=== PATIENT | male | born 1995 | race Caucasian/White ===

== ENCOUNTER 2018-11-29 17:18 | Emergency (ER) | payer BC ==
[2018-11-29 17:49] VITALS: BP 148/75
--- NOTE | 2018-11-29 18:10 | UC ---
Ear Complaint HPI - HPI Summary HPI Summary: 23 year old male with PMH + for dental work x 1 month ago, meds: none. + h/o seasonal allergies Presents with L ear fullness x 2 weeks. hears popping in ear, particularly with moving his jaw. Denies pain, decreased hearing. + fullness posterior to ear concerning patient for cancer. Also notes numbness intermittently to b/l 5th, 4th fingers, more at night when sleeping with bent arm, but will occur randomly. patient was reading online about cancer when ersearching his ear and made him stressed/ nervous, which he feels made his fingers worse. He denies loss of movement, able to feel fingers, but feels they are tingling at time. no SOB - History of Current Complaint Chief Complaint: UCEar Stated Complaint: JAW PAIN,SINUSES,EAR PLUGGED Time Seen by Provider: 11/29/18 18:05 Hx Obtained From: Patient Onset/Duration: Sudden Onset, Lasting Weeks - 2 weeks Severity Initially: Mild Severity Currently: Mild Pain Intensity: 2 Pain Scale Used: 0-10 Numeric Aggravating Factors: Nothing Alleviating Factors: Nothing Associated Signs/Symptoms: Positive: URI Symptoms - + sinus congestion, L sided. Negative: Discharge, Hearing Loss, Foreign Body Sensation, Trauma to Ear Related History: Seasonal Allergies - Allergies/Home Medications Allergies/Adverse Reactions: Allergies Allergy/AdvReac Type Severity Reaction Status Date / Time No Known Allergies Allergy Verified 11/29/18 17:42 Home Medications: Home Medications Ibuprofen TAB* [Advil TAB*] 400 mg PO Q6H PRN 11/29/18 [History Confirmed ] PMH/Surg Hx/FS Hx/Imm Hx Previously Healthy: Yes - seasonal alelrgies - Surgical History Surgical History: Yes Surgery Procedure, Year, and Place: Left knee approx 3 yrs ago. [place] teeth extractions - Family History Known Family History: Positive: Non-Contributory - Social History Alcohol Use: Weekly Substance Use Type: Marijuana Smoking Status (MU): Former Smoker When Did the Patient Quit Smoking/Using Tobacco: 6 mos ago Review of Systems All Other Systems Reviewed And Are Negative: Yes Constitutional: Positive: Negative. Negative: Fever, Chills, Fatigue ENT: Positive: Ear Ache, Sinus Congestion. Negative: Sinus Pain/Tenderness Is Patient Immunocompromised?: Yes Physical Exam Triage Information Reviewed: Yes Appearance: Well-Appearing, No Pain Distress, Well-Nourished Vital Signs: Initial Vital Signs Temp 97.8 F 11/29/18 17:43 Pulse 60 11/29/18 17:43 Resp 15 11/29/18 17:43 BP 148/75 11/29/18 17:43 Pulse Ox 100 11/29/18 17:43 Vital Signs Reviewed: Yes Eyes: Positive: Conjunctiva Clear ENT: Positive: Hearing grossly normal, Pharynx normal, TMs normal - mild fluid posterior to TM L sided, Uvula midline. Negative: Pharyngeal erythema, TM bulging, TM dull, TM red, Tonsillar swelling, Tonsillar exudate, Sinus tenderness Neck: Positive: Supple, Nontender, No Lymphadenopathy, Enlarged Nodes @ - small < 1cm LN noted posterior TM. Negative: Nuchal Rigidity Respiratory: Positive: Chest non-tender, Lungs clear, Normal breath sounds, No respiratory distress, No accessory muscle use. Negative: Crackles, Rhonchi, Stridor, Wheezing Psychological Exam: Normal Skin Exam: Normal Ear Complaint Course/Dx - Course Course Of Treatment: Viral syndrome - Antihistamine as needed, benadryl at night for congestion - Motrin/Tylenol as needed for pain - Differential Dx/Diagnosis Provider Diagnosis: Viral labyrinthitis syndrome Discharge - Discharge Plan Referrals: No Primary Care Phys,NOPCP [Primary Care Provider] -
== END 2018-11-29 18:54 | disposition home or self-care (01) ==
LOC: UCCORT 17:18
DX: H83.02 Labyrinthitis, left ear (principal); B34.9 Viral infection, unspecified; Z87.891 Personal history of nicotine dependence
CPT/HCPCS: 99201; G0463